=== PATIENT | male | born 1955 | race Caucasian/White ===

== ENCOUNTER 2016-09-03 07:51 | Emergency (ER) | payer OTHER ==
[~2016-09-03] VITALS: Ht 175.3 cm; Wt 86.2 kg
[2016-09-03] MEDS ORDERED: ULTRAM 50MG TAB50 MG PO (08:15)
[2016-09-03] MEDS ORDERED: IBUPROFEN 800800 M1 PO (08:15)
[2016-09-03 08:30] VITALS: BP 155/101
== END 2016-09-03 08:31 | disposition home or self-care (01) ==
LOC: ER 07:51
DX: S05.02XA Injury of conjunctiva and corneal abrasion without foreign body, left eye, initial encounter (principal); X58.XXXA Exposure to other specified factors, initial encounter; Y93.89 Activity, other specified; Y92.89 Other specified places as the place of occurrence of the external cause; Y99.9 Unspecified external cause status